=== PATIENT | female | born 1975 | race Caucasian/White ===

== ENCOUNTER 2017-05-01 12:26 | Emergency (ER) | payer SELFPAY ==
[2017-05-01] MEDS ORDERED: NORMAL SALINE 1000 ML 1,000 ML IV ONE (13:17)
--- NOTE | 2017-05-01 13:21 | ER Document Report ---
ED Psych Disorder / Suicide - General TRAVEL OUTSIDE OF THE [place] IN LAST 30 DAYS: No <LEAH GUERRA - Last Filed: 05/01/17 13:18> <CAMERON PATRICK - Last Filed: 05/01/17 16:23> - General Chief Complaint: Overdose Stated Complaint: DIZZINESS Time Seen by Provider: 05/01/17 13:09 Notes: This 41-year-old female patient comes emergency room after taking a Tylenol PM overdose this morning around 430 or 5 AM. She reports taking up to 12 Tylenol PM yesterday throughout the day. And then this morning near 5 AM took 20. She reports these were the blue generic Tylenol PM. Her most likely the 500 mg tablets. This worked up to an acute dose of 158 mg/kg, and excessive dosing throughout the day before. She has developed nausea and vomiting, first vomited about 10 AM. She moved here from [place] 9 months ago at which time she ran out of her Ativan , Zoloft, trazodone. She has not been on medication since then and has not sought out a provider since then. This is likely a borderline toxic Tylenol overdose, request was made for a room in the back to initiate Mucomyst treatment. I have greeted and performed a rapid initial assessment of this patient. A comprehensive ED assessment and evaluation of the patient, analysis of test results and completion of the medical decision making process will be conducted by additional ED providers. (LEAH GUERRA) - Related Data Allergies/Adverse Reactions: codeine Allergy (Verified 05/01/17 12:27) - Vital signs Vitals: Temp Pulse Resp BP Pulse Ox 97.8 F 107 H 16 132/81 H 97 05/01/17 12:32 05/01/17 12:32 05/01/17 12:32 05/01/17 12:32 05/01/17 12:32 Course - Laboratory Result Diagrams: 05/01/17 13:43 05/01/17 13:43 <CAMERON PATRICK - Last Filed: 05/01/17 16:23> - Vital Signs Vital signs: Temp Pulse Resp BP Pulse Ox 97.8 F 107 H 15 123/82 96 05/01/17 12:32 05/01/17 12:32 05/01/17 15:00 05/01/17 15:00 05/01/17 15:00 - Laboratory Laboratory results interpreted by me: 05/01/17 05/01/17 05/01/17 13:43 13:43 14:18 WBC 11.7 H RDW 14.5 H Urine Protein 30 H Urine Bilirubin SMALL H Ur Leukocyte Esterase TRACE H Salicylates < 1.0 L Discharge <MARILEAH Arguello - Last Filed: 05/01/17 13:18> <CAMERON PATRICK - Last Filed: 05/01/17 16:23> - Discharge Clinical Impression: Overdose by acetaminophen, Depression Condition: Stable Disposition: HOME, SELF-CARE Additional Instructions: DEPRESSION: Your evaluation reveals that you have mental depression. While symptoms may be vague, they often include disturbance of sleep, fatigue, loss of appetite , and general loss of interest in life. While depression may be a side effect of drugs, or a reaction to a major change in your life, many cases have no known cause. If depression is acute, and related to a major loss in your life, you can expect it to clear completely with time. If you have been depressed a long time , are prone to repeated bouts of depression or low mood, or have been thinking of suicide, get help. Depression can be treated with anti-depressant medication and counselling. Long-term depression will often take a few weeks to clear, even with appropriate medication. Follow-up care is important. COCAINE ABUSE: Cocaine causes many dangerous medical problems. Problems can occur even with "usual" amounts. Cocaine affects judgement, creating a sense of invulnerability. Cocaine users often make bad decisions that seem "great" at the time. Most cocaine users eventually will be hurt by bad job performance, damaged personal relations, crime, and unsafe sexual practices. Toxic effects of cocaine can include seizures, hallucinations, delusions, high blood pressure, heart damage, or sudden . There's always the risk of a "bad batch." But heart attacks, brain hemorrhages, or cardiac arrest can occur unpredictably even with "normal" use. Injection of cocaine is risky for abscesses, endocarditis (heart infection) , pneumonia, and AIDS. Withdrawal from cocaine often causes anxiety and drug cravings. Some users become paranoid and psychotic. Many treatment programs are available, but you must make the decision to quit. Medication can be prescribed to control the symptoms of cocaine toxicity (beta blockers or benzodiazepines). Withdrawal symptoms may require tranquilizers. NARCOTIC / OPIOD ABUSE: Narcotics and opiods are pain-relieving drugs that are often abused. They are addicting. Narcotics cause euphoria, but it often takes increasing amounts to "feel good" and avoid withdrawal symptoms. Overdose of narcotics causes small pupils, coma, and decreased breathing. It's a common cause of . Purity of street narcotics is unpredictable. Injection of narcotics is risky for abscesses, endocarditis (heart infection), pneumonia, and AIDS. Withdrawal from narcotics causes goose bumps, watery mouth, sweating, nasal congestion, muscle aches, abdominal cramps, vomiting, and diarrhea. There 's often restlessness and confusion. Treatment programs are available, but you must make the decision to quit. Medication (such as clonidine) can be prescribed to control the symptoms of withdrawal. AMPHETAMINE / METHAMPHETAMINE ABUSE: Amphetamines are addicting stimulants. Amphetamines overstimulate the nervous system and give a false feeling of power and mastery. These drugs may be obtained as prescription pills for weight loss, narcolepsy, or attention- deficit disorder. More often they're bought as an illegal street drug, methamphetamine (crank, crystal, speed). Using amphetamines repeatedly can lead to serious medical problems including malnutrition, severe depression, and paranoia. It can take increasing amounts to feel good. Eventually, there will be a "burn out." When you go off amphetamines there is a period of depression that may last for weeks or even months. High doses of amphetamines can cause seizures, confusion, hallucinations, delusions, high blood pressure, muscle damage, heart damage, or sudden . Many times these deadly complications occur even with "normal" doses. Injection of amphetamines is risky for developing abscesses, endocarditis ( heart infection), pneumonia, and AIDS. Withdrawal from amphetamines often causes anxiety, depression, and drug cravings. Some users become paranoid and psychotic. There may be cramps, nausea , and vomiting. Many treatment programs are available, but you must make the decision to quit. Medication can be prescribed to control the symptoms of amphetamine toxicity (beta blockers or benzodiazepines). Withdrawal symptoms may require tranquilizers. OVERDOSE / INGESTION: You have taken more medication than you should have. After your evaluation and care, it is felt that your overdose is not likely to be harmful or of any significant consequences to you and you are being discharged. In the future, you should be careful not to take more medications than what is prescribed for you. Although your overdose does not seem to be of any danger to you at this time, if you develop any unusual or unexpected symptoms after your discharge, you should return to the Emergency Department immediately for re-evaluation. INSTRUCTIONS FOR HOME CARE FOLLOWING DRUG OVERDOSAGE: The doctor feels it's safe for you to go home. You will need to be observed. If charcoal and a laxative was given to you, expect some loose black stools soon. Take no medications unless approved by a physician, including alcohol. If drowsy, lie on your stomach or side for sleeping to avoid aspiration if vomiting occurs. Take only liquids by mouth until there is no more nausea. FOR THE OBSERVER: Observe the patient for the next 24 hours and call or go to the hospital if any of the following are noted: prolonged or repeated vomiting, difficulty in arousing, convulsions (seizures or fits), fever, persistent cough, breathing that is too slow or too rapid, or confused or bizarre behavior. If a counselling visit has been arranged, make sure the patient attends. Call the physician or poison control if you have questions. FOLLOW-UP CARE: You have been given a referral to [facility]. It is recommended you follow up with the community provider to establish care and treatment for your mental health issues. In the event you choose not to follow up with [facility] you were give a resource list of other providers in the community to choose from. You have been given resources for detox and rehab to utilize. You were also given the date, time and place for the local Narcotics Anonymous meeting. If you experience worsening or a significant change in your symptoms, notify the physician immediately or return to the Emergency Department at any time for re- evaluation. Referrals: [facility] [Outside] - Follow up as needed
[2017-05-01 14:12] LABS: ABSOLUTE LYMPHOCYTES (AUTO) 2.8 10^3/uL (0.5-4.7); ABSOLUTE MONOCYTES (AUTO) 0.6 10^3/uL (0.1-1.4); ABSOLUTE NEUT (AUTO) 8.2 10^3/uL (1.7-8.2); BASOPHILS % (AUTO) 0.4 % (0-2); EOSINOPHILS % (AUTO) 0.1 % (0-6); HEMATOCRIT 45.5 % (36.0-47.0); HEMOGLOBIN 15.2 g/dL (12.0-15.5); LYMPHOCYTES % (AUTO) 23.9 % (13-45); MEAN CORPUSCULAR HEMOGLOBIN 29.7 pg (27.0-33.4); MEAN CORPUSCULAR HGB CONC 33.5 g/dL (32.0-36.0); MEAN CORPUSCULAR VOLUME 89 fl (80-97); MONOCYTES % (AUTO) 5.5 % (3-13); PLATELET COUNT 326 10^3/uL (150-450); RED BLOOD COUNT 5.12 10^6/uL (3.72-5.28); RED CELL DISTRIBUTION WIDTH 14.5 % (11.5-14.0); SEGMENTED NEUTROPHILS % (AUTO) 70.1 % (42-78); TOTAL CELLS COUNTED % (AUTO) 100 %; WHITE BLOOD COUNT 11.7 10^3/uL (4.0-10.5)
[2017-05-01 14:30] LABS: ACETAMINOPHEN 22 ug/mL (10-30); ALANINE AMINOTRANSFERASE 29 U/L (9-52); ALBUMIN 4.7 g/dL (3.5-5.0); ALKALINE PHOSPHATASE 64 U/L (38-126); ANION GAP 15 (5-19); ASPARTATE AMINO TRANSFERASE 21 U/L (14-36); BILIRUBIN,DIRECT 0.3 mg/dL (0.0-0.4); BILIRUBIN,TOTAL 0.5 mg/dL (0.2-1.3); BLOOD UREA NITROGEN 11 mg/dL (7-20); CALCIUM 10.2 mg/dL (8.4-10.2); CARBON DIOXIDE 24 mmol/L (22-30); CHLORIDE 106 mmol/L (98-107); GLUCOSE 98 mg/dL (75-110); POTASSIUM 4.3 mmol/L (3.6-5.0); SODIUM 144.8 mmol/L (137-145); TOTAL PROTEIN 7.8 g/dL (6.3-8.2)
[2017-05-01 14:32] LABS: ALCOHOL < 10 mg/dL (NONE DETECTED); SALICYLATE < 1.0 mg/dL (2.0-20.0)
[2017-05-01] MEDS ORDERED: ONDANSETRON 4 MG TAB.RAPDIS PO ONE (14:41)
--- NOTE | 2017-05-01 14:41 | ER Document Report ---
ED Psych Disorder / Suicide - General Chief Complaint: Overdose Stated Complaint: DIZZINESS Time Seen by Provider: 05/01/17 13:09 Notes: 41-year-old female with history of depression. Took 20 Tylenol PM's. States she did not want to wake up. Recently here from [facility]. Lost her children to child protective services. Has a drug problem. Does cocaine. Recently moved to the area to live with her mother. Mother left her. Does not have any support system here. Does have a job at [employer]. States that she did not want to wake up and she has tried to hurt herself in the past. TRAVEL OUTSIDE OF THE [place] IN LAST 30 DAYS: No - HPI Patient complains to provider of: Suicidal ideation, Suicidal attempt, Self injury Onset: Just prior to arrival Onset was: Gradual Quality of pain: No pain Severity: Moderate Suicide Risk Factors: Bipolar, Depressed, Lack of social support, Prior suicide attempt, Substance abuse Situational problems related to: Daughter, Son, Spouse, Work Overdose of: Acetominophen Associated symptoms: Depressed Similar symptoms previously: Yes - Related Data Allergies/Adverse Reactions: codeine Allergy (Verified 05/01/17 12:27) Past Medical History - General Information source: Patient - Social History Smoking Status: Current Every Day Smoker Cigarette use (# per day): Yes Frequency of alcohol use: Occasional Drug Abuse: Cocaine, Marijuana Lives with: Alone Family History: Other - Depression Patient has suicidal ideation: Yes Patient has homicidal ideation: No - Past Medical History Cardiac Medical History: Reports: None Pulmonary Medical History: Reports: None EENT Medical History: Reports: None Neurological Medical History: Reports: None Endocrine Medical History: Reports: None Renal/ Medical History: Denies: Hx Peritoneal Dialysis Malignancy Medical History: Reports: None GI Medical History: Reports: None Musculoskeltal Medical History: Reports None Skin Medical History: Reports None Psychiatric Medical History: Reports: Hx Depression Review of Systems - Review of Systems Constitutional: No symptoms reported EENT: No symptoms reported Cardiovascular: No symptoms reported Respiratory: No symptoms reported Gastrointestinal: No symptoms reported Genitourinary: No symptoms reported Female Genitourinary: No symptoms reported Musculoskeletal: No symptoms reported Skin: No symptoms reported Hematologic/Lymphatic: No symptoms reported Neurological/Psychological: No symptoms reported Physical Exam - Vital signs Vitals: Temp Pulse Resp BP Pulse Ox 97.8 F 107 H 16 132/81 H 97 05/01/17 12:32 05/01/17 12:32 05/01/17 12:32 05/01/17 12:32 05/01/17 12:32 Interpretation: Normal - General General appearance: Appears well, Alert - HEENT Head: Normocephalic, Atraumatic Eyes: Normal Pupils: PERRL - Respiratory Respiratory status: No respiratory distress Chest status: Nontender Breath sounds: Normal Chest palpation: Normal - Cardiovascular Rhythm: Regular Heart sounds: Normal auscultation Murmur: No - Abdominal Inspection: Normal Distension: No distension Bowel sounds: Normal Tenderness: Nontender Organomegaly: No organomegaly - Back Back: Normal, Nontender - Extremities General upper extremity: Normal inspection, Nontender, Normal color, Normal ROM , Normal temperature General lower extremity: Normal inspection, Nontender, Normal color, Normal ROM , Normal temperature, Normal weight bearing. No: Jose's sign - Neurological Neuro grossly intact: Yes Cognition: Normal Orientation: AAOx4 [place] Coma Scale Eye Opening: Spontaneous [place] Coma Scale Verbal: Oriented [place] Coma Scale Motor: Obeys Commands [place] Coma Scale Total: 15 Speech: Normal Motor strength normal: LUE, RUE, LLE, RLE Sensory: Normal - Psychological Associated symptoms: Normal affect, Depressed - Skin Skin Temperature: Warm Skin Moisture: Dry Skin Color: Normal Course - Re-evaluation Re-evalutation: 05/01/17 18:07 Mental health is seen patient. Nothing further at this time. Follow-up information will be given. No medication requirements at this time. Patient's nonsuicidal at this time. Feels comfortable going home. Will DC at this time. 05/01/17 18:08 . Repeat Tylenol level unremarkable. - Vital Signs Vital signs: Temp Pulse Resp BP Pulse Ox 97.8 F 107 H 16 115/70 97 05/01/17 12:32 05/01/17 12:32 05/01/17 16:00 05/01/17 16:00 05/01/17 16:00 - Laboratory Result Diagrams: 05/01/17 13:43 05/01/17 13:43 Laboratory results interpreted by me: 05/01/17 05/01/17 05/01/17 13:43 13:43 14:18 WBC 11.7 H RDW 14.5 H Urine Protein 30 H Urine Bilirubin SMALL H Ur Leukocyte Esterase TRACE H Salicylates < 1.0 L Acetaminophen 05/01/17 17:14 WBC RDW Urine Protein Urine Bilirubin Ur Leukocyte Esterase Salicylates Acetaminophen < 10 L Discharge - Discharge Clinical Impression: Overdose by acetaminophen Qualifiers: Encounter type: initial encounter Injury intent: undetermined intent Qualified Code(s): T39.1X4A - Poisoning by 4-Aminophenol derivatives, undetermined, initial encounter Depression Qualifiers: Depression Type: unspecified Qualified Code(s): F32.9 - Major depressive disorder, single episode, unspecified Condition: Stable Disposition: HOME, SELF-CARE Additional Instructions: DEPRESSION: Your evaluation reveals that you have mental depression. While symptoms may be vague, they often include disturbance of sleep, fatigue, loss of appetite , and general loss of interest in life. While depression may be a side effect of drugs, or a reaction to a major change in your life, many cases have no known cause. If depression is acute, and related to a major loss in your life, you can expect it to clear completely with time. If you have been depressed a long time , are prone to repeated bouts of depression or low mood, or have been thinking of suicide, get help. Depression can be treated with anti-depressant medication and counselling. Long-term depression will often take a few weeks to clear, even with appropriate medication. Follow-up care is important. COCAINE ABUSE: Cocaine causes many dangerous medical problems. Problems can occur even with "usual" amounts. Cocaine affects judgement, creating a sense of invulnerability. Cocaine users often make bad decisions that seem "great" at the time. Most cocaine users eventually will be hurt by bad job performance, damaged personal relations, crime, and unsafe sexual practices. Toxic effects of cocaine can include seizures, hallucinations, delusions, high blood pressure, heart damage, or sudden . There's always the risk of a "bad batch." But heart attacks, brain hemorrhages, or cardiac arrest can occur unpredictably even with "normal" use. Injection of cocaine is risky for abscesses, endocarditis (heart infection) , pneumonia, and AIDS. Withdrawal from cocaine often causes anxiety and drug cravings. Some users become paranoid and psychotic. Many treatment programs are available, but you must make the decision to quit. Medication can be prescribed to control the symptoms of cocaine toxicity (beta blockers or benzodiazepines). Withdrawal symptoms may require tranquilizers. NARCOTIC / OPIOD ABUSE: Narcotics and opiods are pain-relieving drugs that are often abused. They are addicting. Narcotics cause euphoria, but it often takes increasing amounts to "feel good" and avoid withdrawal symptoms. Overdose of narcotics causes small pupils, coma, and decreased breathing. It's a common cause of . Purity of street narcotics is unpredictable. Injection of narcotics is risky for abscesses, endocarditis (heart infection), pneumonia, and AIDS. Withdrawal from narcotics causes goose bumps, watery mouth, sweating, nasal congestion, muscle aches, abdominal cramps, vomiting, and diarrhea. There 's often restlessness and confusion. Treatment programs are available, but you must make the decision to quit. Medication (such as clonidine) can be prescribed to control the symptoms of withdrawal. AMPHETAMINE / METHAMPHETAMINE ABUSE: Amphetamines are addicting stimulants. Amphetamines overstimulate the nervous system and give a false feeling of power and mastery. These drugs may be obtained as prescription pills for weight loss, narcolepsy, or attention- deficit disorder. More often they're bought as an illegal street drug, methamphetamine (crank, crystal, speed). Using amphetamines repeatedly can lead to serious medical problems including malnutrition, severe depression, and paranoia. It can take increasing amounts to feel good. Eventually, there will be a "burn out." When you go off amphetamines there is a period of depression that may last for weeks or even months. High doses of amphetamines can cause seizures, confusion, hallucinations, delusions, high blood pressure, muscle damage, heart damage, or sudden . Many times these deadly complications occur even with "normal" doses. Injection of amphetamines is risky for developing abscesses, endocarditis ( heart infection), pneumonia, and AIDS. Withdrawal from amphetamines often causes anxiety, depression, and drug cravings. Some users become paranoid and psychotic. There may be cramps, nausea , and vomiting. Many treatment programs are available, but you must make the decision to quit. Medication can be prescribed to control the symptoms of amphetamine toxicity (beta blockers or benzodiazepines). Withdrawal symptoms may require tranquilizers. OVERDOSE / INGESTION: You have taken more medication than you should have. After your evaluation and care, it is felt that your overdose is not likely to be harmful or of any significant consequences to you and you are being discharged. In the future, you should be careful not to take more medications than what is prescribed for you. Although your overdose does not seem to be of any danger to you at this time, if you develop any unusual or unexpected symptoms after your discharge, you should return to the Emergency Department immediately for re-evaluation. INSTRUCTIONS FOR HOME CARE FOLLOWING DRUG OVERDOSAGE: The doctor feels it's safe for you to go home. You will need to be observed. If charcoal and a laxative was given to you, expect some loose black stools soon. Take no medications unless approved by a physician, including alcohol. If drowsy, lie on your stomach or side for sleeping to avoid aspiration if vomiting occurs. Take only liquids by mouth until there is no more nausea. FOR THE OBSERVER: Observe the patient for the next 24 hours and call or go to the hospital if any of the following are noted: prolonged or repeated vomiting, difficulty in arousing, convulsions (seizures or fits), fever, persistent cough, breathing that is too slow or too rapid, or confused or bizarre behavior. If a counselling visit has been arranged, make sure the patient attends. Call the physician or poison control if you have questions. FOLLOW-UP CARE: You have been given a referral to [facility]. It is recommended you follow up with the community provider to establish care and treatment for your mental health issues. In the event you choose not to follow up with [facility] you were give a resource list of other providers in the community to choose from. You have been given resources for detox and rehab to utilize. You were also given the date, time and place for the local Narcotics Anonymous meeting. If you experience worsening or a significant change in your symptoms, notify the physician immediately or return to the Emergency Department at any time for re- evaluation. Prescriptions: Hydroxyzine Pamoate [Vistaril 50 mg Capsule] 50 mg PO Q8H PRN #30 capsule PRN Reason: Anxiety Referrals: [facility] [Outside] - Follow up as needed
[2017-05-01 14:50] LABS: APPEARANCE,URINE SLIGHTLY-CLOUDY; BILIRUBIN,URINE SMALL (NEGATIVE); COLOR,URINE YELLOW; GLUCOSE, URINE NEGATIVE (NEGATIVE); KETONES,URINE NEGATIVE (NEGATIVE); LEUKOCYTE ESTERASE,URINE TRACE (NEGATIVE); NITRITE,URINE NEGATIVE (NEGATIVE); PROTEIN,URINE 30 mg/dL (NEGATIVE); URINE SPECIFIC GRAVITY 1.059; UROBILINOGEN,URINE NEGATIVE mg/dL (<2.0)
[2017-05-01 15:02] LABS: URINE BARBITURATES SCREEN NEGATIVE; URINE BENZODIAZEPINES SCREEN NEGATIVE; URINE METHADONE SCREEN NEGATIVE; URINE PHENCYCLIDINE SCREEN NEGATIVE
[2017-05-01 15:13] LABS: URINE COCAINE SCREEN UNCONFIRMED POSITIVE
[2017-05-01 15:14] LABS: URINE AMPHETAMINES SCREEN UNCONFIRMED POSITIVE; URINE MARIJUANA (THC) SCREEN UNCONFIRMED POSITIVE
--- NOTE | 2017-05-01 18:35 | EKG REPORT ---
SEVERITY:- NORMAL ECG - SINUS RHYTHM : Confirmed by: Ari Scott MD 01-May-2017 18:35:10
[2017-05-01 19:25] VITALS: BP 118/86
--- NOTE | 2017-05-01 20:40 | ER Document Report ---
ED Medical Screen (RME) - General Chief Complaint: Overdose Stated Complaint: DIZZINESS Time Seen by Provider: 05/01/17 13:09 Notes: This 41-year-old female patient comes emergency room after taking a Tylenol PM overdose this morning around 4:30 AM or 5 AM. She reports taking up to 12 Tylenol PM yesterday throughout the day. This morning near 5 AM she took 20 more at one time. She reports these with the blue generic Tylenol PM. This is most likely the 500 mg acetaminophen/25 mg Benadryl tablets. This calculates out to an acute dose of 158 mg/kg, with the excessive dosing throughout the day before. She has developed some nausea and vomiting, first vomiting around 10 AM. She moved here from [place] 9 months ago at which time she ran out of her Ativan, Zoloft, and trazodone. She has not been on medication since then and has not sought out a provider since then. This is likely a borderline toxic Tylenol overdose, request was made for room in the back to initiate Mucomyst treatment pending Tylenol levels. I have greeted and performed a rapid initial assessment of this patient. A comprehensive ED assessment and evaluation of the patient, analysis of test results and completion of the medical decision making process will be conducted by additional ED providers. TRAVEL OUTSIDE OF THE [place] IN LAST 30 DAYS: No - Related Data Allergies/Adverse Reactions: codeine Allergy (Verified 05/01/17 12:27) Past Medical History - Social History Cigarette use (# per day): Yes Frequency of alcohol use: Occasional Drug Abuse: Cocaine, Marijuana - Past Medical History Cardiac Medical History: Reports: None Pulmonary Medical History: Reports: None EENT Medical History: Reports: None Neurological Medical History: Reports: None Endocrine Medical History: Reports: None Renal/ Medical History: Denies: Hx Peritoneal Dialysis Malignancy Medical History: Reports: None GI Medical History: Reports: None Musculoskeltal Medical History: Reports None Skin Medical History: Reports None Psychiatric Medical History: Reports: Hx Depression Physical Exam - Vital signs Vitals: Temp Pulse Resp BP Pulse Ox 97.8 F 107 H 16 132/81 H 97 05/01/17 12:32 05/01/17 12:32 05/01/17 12:32 05/01/17 12:32 05/01/17 12:32 Course - Vital Signs Vital signs: Temp Pulse Resp BP Pulse Ox 98.3 F 105 H 19 118/86 H 98 05/01/17 17:00 05/01/17 17:00 05/01/17 17:00 05/01/17 17:00 05/01/17 17:00 - Laboratory Result Diagrams: 05/01/17 13:43 05/01/17 13:43 Laboratory results interpreted by me: 05/01/17 05/01/17 05/01/17 13:43 13:43 14:18 WBC 11.7 H RDW 14.5 H Urine Protein 30 H Urine Bilirubin SMALL H Ur Leukocyte Esterase TRACE H Salicylates < 1.0 L Acetaminophen 05/01/17 17:14 WBC RDW Urine Protein Urine Bilirubin Ur Leukocyte Esterase Salicylates Acetaminophen < 10 L Doctor's Discharge - Discharge Clinical Impression: Overdose by acetaminophen Qualifiers: Encounter type: initial encounter Injury intent: undetermined intent Qualified Code(s): T39.1X4A - Poisoning by 4-Aminophenol derivatives, undetermined, initial encounter Depression Qualifiers: Depression Type: unspecified Qualified Code(s): F32.9 - Major depressive disorder, single episode, unspecified Condition: Stable Disposition: HOME, SELF-CARE Additional Instructions: DEPRESSION: Your evaluation reveals that you have mental depression. While symptoms may be vague, they often include disturbance of sleep, fatigue, loss of appetite , and general loss of interest in life. While depression may be a side effect of drugs, or a reaction to a major change in your life, many cases have no known cause. If depression is acute, and related to a major loss in your life, you can expect it to clear completely with time. If you have been depressed a long time , are prone to repeated bouts of depression or low mood, or have been thinking of suicide, get help. Depression can be treated with anti-depressant medication and counselling. Long-term depression will often take a few weeks to clear, even with appropriate medication. Follow-up care is important. COCAINE ABUSE: Cocaine causes many dangerous medical problems. Problems can occur even with "usual" amounts. Cocaine affects judgement, creating a sense of invulnerability. Cocaine users often make bad decisions that seem "great" at the time. Most cocaine users eventually will be hurt by bad job performance, damaged personal relations, crime, and unsafe sexual practices. Toxic effects of cocaine can include seizures, hallucinations, delusions, high blood pressure, heart damage, or sudden . There's always the risk of a "bad batch." But heart attacks, brain hemorrhages, or cardiac arrest can occur unpredictably even with "normal" use. Injection of cocaine is risky for abscesses, endocarditis (heart infection) , pneumonia, and AIDS. Withdrawal from cocaine often causes anxiety and drug cravings. Some users become paranoid and psychotic. Many treatment programs are available, but you must make the decision to quit. Medication can be prescribed to control the symptoms of cocaine toxicity (beta blockers or benzodiazepines). Withdrawal symptoms may require tranquilizers. NARCOTIC / OPIOD ABUSE: Narcotics and opiods are pain-relieving drugs that are often abused. They are addicting. Narcotics cause euphoria, but it often takes increasing amounts to "feel good" and avoid withdrawal symptoms. Overdose of narcotics causes small pupils, coma, and decreased breathing. It's a common cause of . Purity of street narcotics is unpredictable. Injection of narcotics is risky for abscesses, endocarditis (heart infection), pneumonia, and AIDS. Withdrawal from narcotics causes goose bumps, watery mouth, sweating, nasal congestion, muscle aches, abdominal cramps, vomiting, and diarrhea. There 's often restlessness and confusion. Treatment programs are available, but you must make the decision to quit. Medication (such as clonidine) can be prescribed to control the symptoms of withdrawal. AMPHETAMINE / METHAMPHETAMINE ABUSE: Amphetamines are addicting stimulants. Amphetamines overstimulate the nervous system and give a false feeling of power and mastery. These drugs may be obtained as prescription pills for weight loss, narcolepsy, or attention- deficit disorder. More often they're bought as an illegal street drug, methamphetamine (crank, crystal, speed). Using amphetamines repeatedly can lead to serious medical problems including malnutrition, severe depression, and paranoia. It can take increasing amounts to feel good. Eventually, there will be a "burn out." When you go off amphetamines there is a period of depression that may last for weeks or even months. High doses of amphetamines can cause seizures, confusion, hallucinations, delusions, high blood pressure, muscle damage, heart damage, or sudden . Many times these deadly complications occur even with "normal" doses. Injection of amphetamines is risky for developing abscesses, endocarditis ( heart infection), pneumonia, and AIDS. Withdrawal from amphetamines often causes anxiety, depression, and drug cravings. Some users become paranoid and psychotic. There may be cramps, nausea , and vomiting. Many treatment programs are available, but you must make the decision to quit. Medication can be prescribed to control the symptoms of amphetamine toxicity (beta blockers or benzodiazepines). Withdrawal symptoms may require tranquilizers. OVERDOSE / INGESTION: You have taken more medication than you should have. After your evaluation and care, it is felt that your overdose is not likely to be harmful or of any significant consequences to you and you are being discharged. In the future, you should be careful not to take more medications than what is prescribed for you. Although your overdose does not seem to be of any danger to you at this time, if you develop any unusual or unexpected symptoms after your discharge, you should return to the Emergency Department immediately for re-evaluation. INSTRUCTIONS FOR HOME CARE FOLLOWING DRUG OVERDOSAGE: The doctor feels it's safe for you to go home. You will need to be observed. If charcoal and a laxative was given to you, expect some loose black stools soon. Take no medications unless approved by a physician, including alcohol. If drowsy, lie on your stomach or side for sleeping to avoid aspiration if vomiting occurs. Take only liquids by mouth until there is no more nausea. FOR THE OBSERVER: Observe the patient for the next 24 hours and call or go to the hospital if any of the following are noted: prolonged or repeated vomiting, difficulty in arousing, convulsions (seizures or fits), fever, persistent cough, breathing that is too slow or too rapid, or confused or bizarre behavior. If a counselling visit has been arranged, make sure the patient attends. Call the physician or poison control if you have questions. FOLLOW-UP CARE: You have been given a referral to [facility] [employer]. It is recommended you follow up with the community provider to establish care and treatment for your mental health issues. In the event you choose not to follow up with [facility] you were give a resource list of other providers in the community to choose from. You have been given resources for detox and rehab to utilize. You were also given the date, time and place for the local Narcotics Anonymous meeting. If you experience worsening or a significant change in your symptoms, notify the physician immediately or return to the Emergency Department at any time for re- evaluation. Prescriptions: Hydroxyzine Pamoate [Vistaril 50 mg Capsule] 50 mg PO Q8H PRN #30 capsule PRN Reason: Anxiety Forms: Return to Work Referrals: [facility] [Outside] - Follow up as needed
--- NOTE | 2017-05-02 15:47 | PSYCHOLOGICAL NOTE ---
Psych Note - Psych Note Psych Note: Reason for consult: Possible Overdose Consents given: Maurice, Roommate, at bedside Patient is a 41 year old woman who presented at the Emergency Department after taking approximately 20 Tylenol PM. She reported she was not attempting to commit suicide but was rather "trying to get some sleep." Patient stated she was not attempting to kill herself when she took the Tylenol PM, she stated she was just trying to go to sleep. She stated she took a handful, waited an hour and when she was still unable to get to sleep she took another handful. She did endorse feelings of depression, stating within the last 9 months, her of 16 years left he and her three children were removed from her home and placed in foster care. She stated her children were taken by [employer] because she and her were actively using drug addicts. She stated her children were not mistreated and they were never left alone as her mother lived with them but she stated "I suppose they were hurt by seeing me messed up but they never got beat or left alone." Patient stated she moved her to get away from the people she used to use drugs with. Patient's toxicology screen came back positive for opiates, amphetamines, cocaine and marijuana. The patient stated the opiates were from a prescription she got from the dentist for tooth pain and she admitted to smoking marijuana. She stated she smokes marijuana daily to "self-medicate" because she does not have her psychiatric medication. Patient vehemently denied doing any cocaine or amphetamines. She stated the marijuana she smoked must have been "laced." Patient reported she went to [facility] in [place] prior to moving to [place]. She stated they diagnosed her with Bipolar Disorder and Anxiety and prescribed her Zoloft, Ativan and Trazadone. Patient reported she was using crack at the time she was receiving treatment and was given her diagnoses. She reported she has not had any psychiatric medications or treatment in the last nine months since her move to this area. She stated she didn't know the resources in this community to establish care. Patients roommate was at bedside as support. Patients roommate agreed to stay with the patient for 24 hours after discharge for monitoring. Patients roommate stated he had no concerns for the patients safety if she was discharged. The roommate stated he didn't think the patient was Bipolar as her previous provider had diagnosed her. He stated he felt like the patient had Borderline Personality Disorder. He stated her cycling of moods wasn't gradual and over the course of the moth. He reported she could cycle through her moods multiple times within a day and had severe highs and lows. Patient was alert and oriented to person, place, time and circumstance. Mood was calm with subdued affect. Patient denied suicidal/homicidal ideation, intent or plan. She did not appear to be responding to internal stimuli as evidenced by appropriate eye contact, maintaining conversation and staying on topic. No delusions or psychosis noted. Thought processes were organized and linear. Conversational speech was within normal limits for rate, tone and prosody. Intellectual abilities were estimated in the average range. Insight, judgment and impulse control were poor. 1. 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 296.80 (F31.9) Bipolar Disorder, per patient report 3. 300.02 (F41.1) Generalized Anxiety Disorder, per patient report Impression/Plan: Patient is psychiatrically clear. Patient denied suicidal/ homicidal ideation, intent or plan. Patient is not considered a danger to herself or others. No delusions or psychosis were observed. Patient has a support system in place, with her roommate who lives with her and her mother who lives in [place]. Patient was given resources for community providers, mobile crisis services, detox and rehab facilities in the area. She was referred to [facility] to establish care and ongoing treatment in the community. She was encouraged to choose a provider if she did not want to follow the recommendation for [facility]. Patient was also given the times and address for the local Narcotics Anonymous (NA) meetings. Consulted with Dr. Box regarding the care and management of this patient. ED physician in agreement with recommendation and disposition.
== END 2017-05-01 19:17 | disposition home or self-care (01) ==
LOC: ER 12:26
DX: T39.1X4A Poisoning by 4-Aminophenol derivatives, undetermined, initial encounter (principal); R11.2 Nausea with vomiting, unspecified; F32.9 Major depressive disorder, single episode, unspecified; T43.216A Underdosing of selective serotonin and norepinephrine reuptake inhibitors, initial encounter; T43.226A Underdosing of selective serotonin reuptake inhibitors, initial encounter; Z91.128 Patient's intentional underdosing of medication regimen for other reason; Z91.14 Patient's other noncompliance with medication regimen; F14.10 Cocaine abuse, uncomplicated; F12.10 Cannabis abuse, uncomplicated; F17.210 Nicotine dependence, cigarettes, uncomplicated; Z88.5 Allergy status to narcotic agent; Z81.8 Family history of other mental and behavioral disorders
CPT/HCPCS: 93005; 99285; 96360; 36415; 80307 ×4; 84703; 85025; 80053; 81001; 93010; S0119; J7030